=== PATIENT | male | born 1980 | race Two or more races ===

== ENCOUNTER 2025-01-21 16:08 | Emergency (ER) | payer MEDICAID, OTHER ==
[~2025-01-21] VITALS: Ht 165.1 cm; Wt 81.7 kg
[2025-01-21 16:24] VITALS: BP 134/80; PULSE 74; RESP 15; TEMP 99; O2SAT 97
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
[2025-01-21] MEDS ORDERED: CLIN-203 PO (16:33)
== END 2025-01-21 17:10 | disposition home or self-care (01) ==
LOC: ER 16:16
DX: L73.9 Follicular disorder, unspecified (principal); Z79.899 Other long term (current) drug therapy